=== PATIENT | female | born 1965 | race Caucasian/White ===

== ENCOUNTER 2016-08-10 18:53 | Emergency (ER) | payer MEDICAID ==
[2016-08-11] MEDS ORDERED: ONDANSETRON 4 MG VIAL ONE (01:46)
[2016-08-11] MEDS ORDERED: DILAUDID 1 MG/ML AMP ONE (01:46)
== END 2016-08-11 04:01 | disposition home or self-care (01) ==
LOC: ER 18:53
DX: M79.604 Pain in right leg (principal); M25.571 Pain in right ankle and joints of right foot; S83.421A Sprain of lateral collateral ligament of right knee, initial encounter; S83.411A Sprain of medial collateral ligament of right knee, initial encounter; S83.281A Other tear of lateral meniscus, current injury, right knee, initial encounter; S83.241A Other tear of medial meniscus, current injury, right knee, initial encounter; J44.9 Chronic obstructive pulmonary disease, unspecified; M79.7 Fibromyalgia; I73.9 Peripheral vascular disease, unspecified; F17.290 Nicotine dependence, other tobacco product, uncomplicated; Z79.899 Other long term (current) drug therapy
CPT/HCPCS: 93971; 96374; 96375